=== PATIENT | female | born 1940 | race Caucasian/White ===

== ENCOUNTER 2017-11-23 14:43 | Emergency (ER) | payer OTHER ==
[~2017-11-23] VITALS: Ht 157.5 cm; Wt 102.1 kg
[2017-11-23 14:57] VITALS: Ht 157.5 cm; Wt 102.1 kg
[2017-11-23 16:04] LABS: CALCIUM 8.5 mg/dL (8.5-10.1); CARBON DIOXIDE 27.8 mmol/L (21-32); CHLORIDE SERUM 107 mmol/L (98-107); CREATININE SERUM 0.7 mg/dL (0.6-1.0); GLUCOSE SERUM 149 mg/dL (74-106); POTASSIUM SERUM 3.3 mmol/L (3.5-5.1); SODIUM SERUM 142 mmol/L (136-145)
[2017-11-23 16:16] LABS: ALBUMIN 3.4 g/dL (3.4-5.0); ALKALINE PHOSPHATASE 111 U/L (46-116); ALT/SGPT 17 U/L (14-59); AST/SGOT 12 U/L (15-37); BILIRUBIN TOTAL 0.76 mg/dL (0.20-1.00); C REACTIVE PROTEIN 0.4 mg/dL (<=0.9); TOTAL PROTEIN, SERUM 7.6 g/dL (6.4-8.2)
[2017-11-23 16:23] LABS: BASOPHIL % 0.5 % (0-2); PLATELET COUNT 200 x10^3mcL (130-400); RED CELL DISTRIBUTION WIDTH 12.7 % (11.5-14.5)
[2017-11-23 16:29] LABS: FREE T4 0.92 ng/dL (0.76-1.46); FREE THYROXINE INDEX 2.4 ug/dL (1.4-4.5); T4(THYROXINE) 7.1 ug/dL (4.7-13.3)
[2017-11-23 16:31] LABS: CK-MB 0.9 ng/mL (0-3.6)
[2017-11-23 16:32] LABS: T3 TOTAL 1.05 ng/mL
[2017-11-23 16:43] LABS: UA SPECIFIC GRAVITY 1.015 (1.005-1.035); microscopic required? YES; urine erythrocyte TRACE (NEGATIVE)
[2017-11-23 17:04] LABS: ERYTHROCYTE SED RATE 18 mm/hr (0-30)
[2017-11-23 17:31] LABS: AMPHETAMINE QUAL UR NONE DETECTED (See below)
[2017-11-23 18:30] VITALS: BP 130/68
== END 2017-11-23 19:02 | disposition home or self-care (01) ==
LOC: ED 14:43
PROVIDERS: Specialist
DX: J06.9 Acute upper respiratory infection, unspecified (principal); E66.01 Morbid (severe) obesity due to excess calories; Z90.49 Acquired absence of other specified parts of digestive tract
CPT/HCPCS: 36415; 36600; 83880; 84439; J0696; J2001

== ENCOUNTER 2017-11-25 13:08 | Emergency (ER) | payer MEDICARE, OTHER ==
[~2017-11-25] VITALS: Ht 147.3 cm; Wt 89.8 kg
[2017-11-25 13:24] VITALS: Ht 147.3 cm; Wt 89.8 kg
[2017-11-25 15:30] VITALS: BP 143/101
== END 2017-11-25 15:30 | disposition home or self-care (01) ==
LOC: ED 13:08
DX: Z00.01 Encounter for general adult medical examination with abnormal findings (principal); Z90.49 Acquired absence of other specified parts of digestive tract

== ENCOUNTER 2019-07-15 11:26 | Inpatient (IN) | payer MEDICARE, OTHER ==
[~2019-07-15] VITALS: Ht 149.9 cm; Wt 91.2 kg
[2019-07-15 12:20] LABS: BASOPHIL % 0.7 % (0-2); PLATELET COUNT 173 x10^3mcL (130-400); RED CELL DISTRIBUTION WIDTH 13.2 % (11.5-14.5)
[2019-07-15 12:30] LABS: CALCIUM 8.3 mg/dL (8.5-10.1); CARBON DIOXIDE 26.8 mmol/L (21-32); CHLORIDE SERUM 108 mmol/L (98-107); CREATININE SERUM 0.7 mg/dL (0.6-1.0); GLUCOSE SERUM 113 mg/dL (74-106); POTASSIUM SERUM 3.8 mmol/L (3.5-5.1); SODIUM SERUM 144 mmol/L (136-145)
[2019-07-15 12:33] LABS: microscopic required? YES; urine erythrocyte TRACE (NEGATIVE)
[2019-07-15 12:35] LABS: ALKALINE PHOSPHATASE 84 U/L (46-116); ALT/SGPT 14 U/L (14-59); AST/SGOT 16 U/L (15-37); LIPASE 86 IU/L (73-393); TOTAL PROTEIN, SERUM 6.6 g/dL (6.4-8.2)
[2019-07-15 12:36] LABS: ALBUMIN 3.1 g/dL (3.4-5.0)
[2019-07-15] MEDS ORDERED: OSTERA TABLET1 EACH PO (13:28)
[2019-07-15] MEDS ORDERED: ZESTRIL10 MG PO (13:28)
[2019-07-15] MEDS ORDERED: SIMVASTATIN80 M1 PO (13:28)
[2019-07-15 14:26] LABS: CHOLESTEROL/HDL RATIO 2.6
[2019-07-15 16:11] VITALS: BP 152/86
[2019-07-15 20:20] VITALS: BP 112/62
[2019-07-15 21:51] VITALS: Ht 149.9 cm; Wt 91.2 kg
[2019-07-16 05:15] VITALS: BP 125/72
[2019-07-16 07:28] LABS: CALCIUM 8.2 mg/dL (8.5-10.1); CARBON DIOXIDE 29.1 mmol/L (21-32); CHLORIDE SERUM 111 mmol/L (98-107); CREATININE SERUM 0.7 mg/dL (0.6-1.0); GLUCOSE SERUM 100 mg/dL (74-106); MAGNESIUM 2.1 mg/dL (1.8-2.4); PHOSPHOROUS 3.1 mg/dL (2.5-4.9); POTASSIUM SERUM 4.3 mmol/L (3.5-5.1); SODIUM SERUM 146 mmol/L (136-145)
[2019-07-16 07:45] LABS: BASOPHIL % 0.2 % (0-2); PLATELET COUNT 169 x10^3mcL (130-400); RED CELL DISTRIBUTION WIDTH 13.4 % (11.5-14.5)
[2019-07-16 08:13] VITALS: BP 105/48
[2019-07-16 09:05] LABS: CA 125 13.6 U/mL (0.0-38.1)
[2019-07-16 12:07] VITALS: BP 129/79
[2019-07-16] MEDS ORDERED: NOR7T PO (12:50)
[2019-07-16 14:04] VITALS: BP 129/79
== END 2019-07-16 16:12 | disposition home or self-care (01) | DRG 687 ==
LOC: ED 11:26 → MU 12:55
PROVIDERS: Emergency Medicine; ADMIT Family Medicine
DX: D49.59 Neoplasm of unspecified behavior of other genitourinary organ (principal); E44.1 Mild protein-calorie malnutrition; E87.8 Other disorders of electrolyte and fluid balance, not elsewhere classified; I10 Essential (primary) hypertension; E78.5 Hyperlipidemia, unspecified; E78.00 Pure hypercholesterolemia, unspecified; E83.51 Hypocalcemia; Z90.49 Acquired absence of other specified parts of digestive tract; Z90.710 Acquired absence of both cervix and uterus; Z79.899 Other long term (current) drug therapy; Z68.36 Body mass index [BMI] 36.0-36.9, adult
CPT/HCPCS: G0378; J1644; J1885; J2405; J7030